=== PATIENT | female | born 1970 | race Hispanic/Latino ===

== ENCOUNTER 2019-04-06 23:17 | Emergency (ER) | payer BC, SELFPAY ==
[~2019-04-06 23:17] MED LIST: Iopamidol 370 76% 100 ML VIAL ONE
[2019-04-06 23:50] LABS: #Basophils 0.1 thou/uL (0.0-0.2); #Eosinphils 0.3 thou/uL (0.0-0.7); #Monocytes 0.7 thou/uL (0.11-0.59); #Neutrophils 4.9 thou/uL (1.40-6.50); %Eosinophils 3.1 % (0.0-10.0); %Lymphocytes 40.2 % (21.0-51.0); %Monocytes 6.9 % (0.0-10.0); %Neutrophils 48.8 % (42.0-75.0); Hemoglobin 14.1 g/dL (12.0-16.0); Mean Corpuscular HGB CONC 32.4 g/dL (32.0-36.0); Mean Corpuscular Hemoglobin 28.8 pg (27.0-31.0); Mean Corpuscular Volume 89.1 fL (78.0-98.0); Mean Platelet Volume 7.3 fL (7.4-10.4); Platelet Count 272 thou/uL (130-400); RBC Distribution Width 11.3 % (11.5-14.5); Red Blood Cell (RBC) Count 4.89 mill/uL (4.20-5.40)
[2019-04-06 23:52] LABS: BHCG - Serum Negative (NEGATIVE); Pregs Control Bar Appear? YES (CONTROL BAR)
[2019-04-06] MEDS ORDERED: Ondansetron PF 4 MG/2 ML Vial ONE (23:53)
[2019-04-06] MEDS ORDERED: Morphine 4 MG/ML VIAL ONE (23:53)
[2019-04-06 23:58] LABS: Bilirubin Negative (Negative); Blood, Urine Negative (Negative); Clarity Clear (Clear); Glucose, Urine (Dipstick) Negative (Negative); Leukocyte Negative (Negative); Nitrite Negative (Negative); Protein, Urine (Dipstick) Negative (Neg-Trace); Urobilinogen 0.2 mg/dL (0.2-1.0)
[2019-04-07 00:05] LABS: ALT (SGPT) 26 U/L (8-55); AST (SGOT) 26 U/L (5-34); Albumin 4.5 g/dL (3.5-5.0); Alkaline Phosphatase 84 U/L (40-150); Anion Gap 16 mmol/L (10-20); BUN (Urea Nitrogen) 12 mg/dL (7.0-18.7); Bilirubin, Total 0.3 mg/dL (0.2-1.2); Calc. Creatinine Clearance 0 mL/min (70-130); Calcium 9.8 mg/dL (7.8-10.44); Carbon Dioxide 24 mmol/L (22-29); Chloride 103 mmol/L (98-107); Estimated GFR-MDRD 82; Globulin 3.3 g/dL (2.4-3.5); Glucose 118 mg/dL (70-105); Lipase 50 U/L (8-78); Protein, Total 7.8 g/dL (6.0-8.3); Sodium 139 mmol/L (136-145)
[2019-04-07] MEDS ORDERED: Pantoprazole 40 MG VIAL ONE (01:13)
[2019-04-07] MEDS ORDERED: diphenhydrAMINE 25 MG CAP ONE (02:28)
--- NOTE | 2019-04-07 08:53 | CT ---
PRELIMINARY REPORT/[facility]/EMERGENCY AFTER HOURS PROCEDURE: EXAM: CT Abdomen and Pelvis With Contrast EXAM DATE/TIME: 04/07/2019 12:30 AM CLINICAL HISTORY: 48 years old, female; Abdominal pain; Localized; Right upper quadrant (ruq); Prior surgery; Surgery d ate: 6+ months; Surgery type: Gallbladder & tubal; Patient HX: C/O ruq pain that started Tuesday an d got worse. Reports nausea and diarrhea. ; Additional info: Ordered iv only TECHNIQUE: Imaging protocol: Axial computed tomography images of the abdomen and pelvis with intravenous contras t. Coronal and sagittal reformatted images were created and reviewed. Radiation optimization: All CT scans at this facility use at least one of these dose optimization techniques: automated exposure con trol; mA and/or kV adjustment per patient size (includes targeted exams where dose is matched to clin ical indication); or iterative reconstruction. Contrast material: ISOVUE 370; Contrast volume: 96 ml; Contrast route: RT AC IV; COMPARISON: No relevant prior studies available. FINDINGS: Lungs: The lung bases are clear. Liver: Unremarkable. Gallbladder and bile ducts: Prior cholecystectomy, no significant biliary tree dilation. Pancreas: Unremarkable. Spleen: Unremarkable. Adrenals: Unremarkable. Kidneys and ureters: Unremarkable. Stomach and bowel: The stomach appears somewhat distended at the time of scanning. Please correlate c linically. Some proximal small bowel loops are fluid-filled and borderline prominent in size, but the overall ap pearance is not strongly suggestive of significant small bowel obstruction at this time. This appearance could be secondary to some form of gastroenteritis. Please correlate clinically. If there is clinical suspicion for small bowel obstruction, follow-up may be helpful to exclude progr ession. There are no CT findings to strongly suggest diverticulitis. Appendix: The appendix is visualized and appears normal. Intraperitoneal space: No free air, or ascites. Vasculature: No evidence for abdominal aortic aneurysm. Lymph nodes: No retroperitoneal adenopathy. Bladder: Unremarkable as visualized. Reproductive: The left ovary contains a 13-14 mm dominant follicle versus very small cyst. Significance unlikely due to small size. No cul-de-sac fluid. Bones/joints: No significant acute finding. Soft tissues: No significant acute finding. IMPRESSION: 1. Some proximal small bowel loops are fluid-filled and borderline prominent in size, but the appeara nce is not suggestive of significant small bowel obstruction at this time. This appearance could be s econdary to some form of gastroenteritis. 2. Somewhat distended stomach. 3. No free intraperitoneal air. 4. Prior cholecystectomy, no significant biliary tree dilation. 5. Normal appendix. 6. The left ovary contains a 13-14 mm dominant follicle versus very small cyst. Significance unlikely due to small size. No cul-de-sac fluid. 7. Other findings discussed above. Thank you for allowing us to participate in the care of your patient. Dictated and Authenticated by: Dean Rivera MD 04/07/2019 2:16 AM Central Time ([place] & [place]) FINAL REPORT EMERGENCY AFTER HOURS CT ABDOMEN AND PELVIS PERFORMED WITH CONTRAST ENHANCEMENT: Date: 04/06/19 HISTORY: Abdominal pain, more right-sided. Nausea and diarrhea. History of cholecystectomy and tubal ligation. FINDINGS: The lung bases are clear. The liver and spleen show no focal findings. The pancreas shows no mass or ductal dilatation. The gal lbladder has been removed. Right and left adrenal glands, and right and left kidneys are normal in size. There is no significant periaortic or mesenteric adenopathy. There is slight fluid-filled distention of some of the proximal small bowel. This would be more suggestive than enteritis. I do not see any signs that would suggest this represents obstruction. There is a moderate amount of stool present on the right and transverse colon. CT of pelvis was performed with contrast enhancement. Bilateral tubal ligation is noted. No adenopath y or mass. The appendix is normal. IMPRESSION: 1. Postop cholecystectomy change and tubal ligation. 2. Some slight fluid-filled distention of the proximal small bowel. Significance is uncertain, altho ugh it could possibly indicate an enteritis. This report is in agreement with the preliminary report issued by [facility].
== END 2019-04-07 02:36 | disposition home or self-care (01) ==
LOC: NAV ERS 23:17
DX: K29.70 Gastritis, unspecified, without bleeding (principal); E78.5 Hyperlipidemia, unspecified; K21.9 Gastro-esophageal reflux disease without esophagitis; Z79.899 Other long term (current) drug therapy
CPT/HCPCS: 74177; 80053; 81003; 83690; 84703; 85025; 96374; 96375; C9113; J2270; J2405; Q0163; Q9967

== ENCOUNTER 2021-05-26 16:26 | Emergency (ER) | payer BC, OTHER ==
[2021-05-26] MEDS ORDERED: Ketorolac Tromethamine 30 MG/ML VIAL ONE (17:51)
== END 2021-05-26 18:10 | disposition home or self-care (01) ==
LOC: NAV ERS 16:26
DX: S09.90XA Unspecified injury of head, initial encounter (principal); M54.5 Low back pain; K21.9 Gastro-esophageal reflux disease without esophagitis; E78.5 Hyperlipidemia, unspecified; E78.00 Pure hypercholesterolemia, unspecified; Z79.899 Other long term (current) drug therapy; W01.0XXA Fall on same level from slipping, tripping and stumbling without subsequent striking against object, initial encounter
CPT/HCPCS: 70450; 72125; 72131; 96374; J1885

== ENCOUNTER 2022-06-10 18:10 | Emergency (ER) | payer BC, OTHER ==
[2022-06-10] MEDS ORDERED: Proparacaine 0.5% Opth 15 ML BOT ONE ×2 (18:27→19:01)
[2022-06-10] MEDS ORDERED: Fluorescein Opthalmic Strip ONE (19:01)
== END 2022-06-10 19:17 | disposition home or self-care (01) ==
LOC: NAV ERS 18:10
DX: H10.211 Acute toxic conjunctivitis, right eye (principal); E78.5 Hyperlipidemia, unspecified; K21.9 Gastro-esophageal reflux disease without esophagitis; Z79.899 Other long term (current) drug therapy
CPT/HCPCS: 99283